=== PATIENT | female | born 1940 | race Two or more races ===

== ENCOUNTER 2018-10-31 09:42 | Outpatient (CLI) | payer OTHER | END 2018-10-31 10:17 | disposition home or self-care (01) | LOC: NUCLEAR 09:42 | DX: R55 Syncope and collapse (principal) ==

== ENCOUNTER 2022-05-03 12:30 | Inpatient (IN) | payer OTHER ==
[~2022-05-03] VITALS: Ht 172.7 cm; Wt 76.2 kg
[2022-05-03] MEDS ORDERED: SYNTH PO (14:28)
[2022-05-03] MEDS ORDERED: TOPROL XL50 M1 PO (14:28)
[2022-05-08] MEDS ORDERED: SYNTHROID50 MCG (10:30)
[2022-05-08] MEDS ORDERED: MELOXICAM7.5 MG (10:30)
[2022-05-09] MEDS ORDERED: ARMOUR THYROID60 M1 PO (12:23)
[2022-05-11] MEDS ORDERED: PERCOCET 5-3251 EACH PO (07:21)
[2022-05-11] MEDS ORDERED: ELIQUIS2.5 MG PO (07:21)
[2022-05-11] MEDS ORDERED: DUI500 PO (07:21)
== END 2022-05-11 16:29 | DRG 470 ==
LOC: O/R 05-08 05:40 → SURG 05-08 05:40
PROVIDERS: ADMIT Orthopaedic Surgery; ATTEND Orthopaedic Surgery
PROC: 0MNN0ZZ Release Right Knee Bursa and Ligament, Open Approach (ICD-10-PCS; 2022-05-08)
PROC: 0SRC0J9 Replacement of Right Knee Joint with Synthetic Substitute, Cemented, Open Approach (ICD-10-PCS; principal; 2022-05-08 16:45)
DX: M17.11 Unilateral primary osteoarthritis, right knee (principal); D62 Acute posthemorrhagic anemia; M81.0 Age-related osteoporosis without current pathological fracture; M22.11 Recurrent subluxation of patella, right knee; E03.9 Hypothyroidism, unspecified; I10 Essential (primary) hypertension